=== PATIENT | male | born 2000 | race Caucasian/White ===

== ENCOUNTER 2022-06-14 17:51 | Inpatient (IN) | payer OTHER ==
[2022-06-14 20:37] VITALS: BMI 34.4
[2022-06-14] MEDS ORDERED: DICYCLOMINE HCL 10 MG CAPSULE PO PRN (21:19)
[2022-06-14] MEDS ORDERED: MAGNESIUM CITRATE 300 ML BOTTLE PO PRN (21:19)
[2022-06-14] MEDS ORDERED: LOPERAMIDE HCL 2 MG CAPSULE PO PRN (21:19)
[2022-06-14] MEDS ORDERED: BENZOCAINE/MENTHOL (CHLORASEPTIC ) LOZENGE MM PRN (21:19)
[2022-06-14] MEDS ORDERED: IBUPROFEN 400 MG TABLET (FP) PO PRN (21:19)
[2022-06-14] MEDS ORDERED: MAGNESIUM HYDROX 2400MG/30ML ORAL SUSPENSION 30 ML CUP PO PRN (21:19)
[2022-06-14] MEDS ORDERED: MELATONIN 5 MG TABLETS PO PRN (21:19)
[2022-06-14] MEDS ORDERED: BISMUTH SUBSALICYLATE 524 MG/30 ML PO PRN (21:19)
[2022-06-14] MEDS ORDERED: P-EPHED 60MG/TRIPROLIDI 2.5MG TABLET PO PRN (21:19)
[2022-06-14] MEDS ORDERED: NALOXONE HCL (KLOXXADO) 8 MG SPRAY NS PRN (21:19)
[2022-06-14] MEDS ORDERED: ONDANSETRON *ODT* 4 MG TABLET SL PRN (21:19)
[2022-06-14] MEDS ORDERED: ACETAMINOPHEN 325 MG TABLET (FP) PO PRN (21:19)
[2022-06-14] MEDS ORDERED: IBUPROFEN 600 MG TABLET (FP) PO PRN (21:19)
[2022-06-14] MEDS ORDERED: guaiFENesin 200 MG/10 ML 10 ML UNIT-DOSE CUPS PO PRN (21:19)
[2022-06-14] MEDS ORDERED: diazePAM 5 MG TABLET ONE (21:39)
[2022-06-14] MEDS: diazePAM 5 MG TABLET PO PRN (21:40)
[2022-06-15] MEDS ORDERED: IBUPROFEN 600 MG TABLET (FP) PO ONE (01:39)
[2022-06-15] MEDS: MAG HYDROX/AL HYDROX/SIMETH 30 ML UNIT-DOSE CUP PO PRN ×2 (02:59→12:46)
[2022-06-15] MEDS: diazePAM 5 MG TABLET PO PRN ×2 (03:44→13:18)
[2022-06-15] MEDS: hydrOXYzine PAMOATE 25 MG CAPSULE (FP) PO PRN ×2 (03:44→13:17)
[2022-06-15] MEDS: THIAMINE HCL 100 MG TABLET (FP) PO SCH ×2 (03:56→22:17)
[2022-06-15] MEDS: SULFAMETHOXAZOLE/TRIMETHOPRIM 800MG/160MG D.S. TABLET PO SCH ×3 (03:56→22:17)
[2022-06-15] MEDS: PRENATAL VITAMINS W/ FOLIC ACID TABLET (FP) PO SCH (10:47)
[2022-06-15] MEDS ORDERED: DIVALPROEX SODIUM 500 MG TABLET E.C. PO SCH (12:15)
[2022-06-15] MEDS ORDERED: HALOPERIDOL 5 MG TABLET PO ONE (12:17)
[2022-06-15 12:26] LABS: HEMATOCRIT 46.6 % (35.4-49); HEMOGLOBIN 14.5 GM/dL (11.7-16.9); MCH 25.6 pg (25.7-33.7); MEAN CELL VOLUME 82.6 fl (80-96); MEAN PLT VOLUME 9.2 fl (7.5-11.1); PLATELET COUNT 261 10^3/uL (134-434); RBC 5.64 M/mm3 (4.00-5.60); RDW 13.9 % (11.9-15.9); WHITE BLOOD COUNT 8.2 K/mm3 (4.0-10.0)
[2022-06-15] MEDS ORDERED: BENZTROPINE MESYLATE 0.5 MG TABLET (FP) PO SCH (12:30)
[2022-06-15] MEDS: METHOCARBAMOL 500 MG TABLET PO PRN (12:30)
[2022-06-15 12:43] LABS: BLOOD UREA NITROGEN 8.7 mg/dL (7-18)
[2022-06-15 12:45] LABS: CALCIUM 9.5 mg/dL (8.5-10.1)
[2022-06-15 12:46] LABS: CREATININE 0.8 mg/dL (0.55-1.3)
[2022-06-15 12:48] LABS: BILIRUBIN,TOTAL 0.9 mg/dL (0.2-1); TOT PROT 7.3 g/dl (6.4-8.2)
[2022-06-15] MEDS: BENZTROPINE MESYLATE 1 MG TABLET PO SCH ×2 (13:18→22:17)
[2022-06-15] MEDS: DIVALPROEX SODIUM 250 MG TABLET E.C. PO SCH ×2 (13:19→22:17)
[2022-06-15] MEDS: NICOTINE 10 MG CARTRIDGE (INHALER) IH PRN ×2 (15:10→22:49)
[2022-06-15 15:18] LABS: HIV INTERPRETATION NEGATIVE (NEGATIVE)
[2022-06-15 21:34] VITALS: RESP 18
[2022-06-15] MEDS: HALOPERIDOL 5 MG TABLET PO SCH (22:19)
[2022-06-15] MEDS: ACETAMINOPHEN 325 MG TABLET (FP) PO PRN (22:19)
[2022-06-16] MEDS: METHOCARBAMOL 500 MG TABLET PO PRN ×2 (00:32→06:37)
[2022-06-16] MEDS: hydrOXYzine PAMOATE 25 MG CAPSULE (FP) PO PRN ×2 (00:32→06:33)
[2022-06-16] MEDS: diazePAM 5 MG TABLET PO PRN (00:32)
[2022-06-16] MEDS: MAG HYDROX/AL HYDROX/SIMETH 30 ML UNIT-DOSE CUP PO PRN (06:13)
[2022-06-16] MEDS: ACETAMINOPHEN 325 MG TABLET (FP) PO PRN (06:34)
[2022-06-16 09:04] VITALS: BP 126/76; PULSE 64; TEMP 97.3
[2022-06-16] MEDS: DIVALPROEX SODIUM 250 MG TABLET E.C. PO SCH (10:18)
[2022-06-16] MEDS: SULFAMETHOXAZOLE/TRIMETHOPRIM 800MG/160MG D.S. TABLET PO SCH (10:18)
[2022-06-16] MEDS: BENZTROPINE MESYLATE 1 MG TABLET PO SCH (10:18)
[2022-06-16] MEDS: PRENATAL VITAMINS W/ FOLIC ACID TABLET (FP) PO SCH (10:21)
[2022-06-16] MEDS: HALOPERIDOL 5 MG TABLET PO SCH (11:06)
== END 2022-06-16 11:20 | disposition home or self-care (01) | DRG 776 ==
LOC: YASAS 17:51 → Y3N 06-15 01:57
PROVIDERS: ADMIT Allergy & Immunology; ATTEND Allergy & Immunology
PROC: HZ2ZZZZ Detoxification Services for Substance Abuse Treatment (ICD-10-PCS; principal; 2022-06-15)
DX: F13.230 Sedative, hypnotic or anxiolytic dependence with withdrawal, uncomplicated (principal); F17.210 Nicotine dependence, cigarettes, uncomplicated; F20.9 Schizophrenia, unspecified; G47.00 Insomnia, unspecified; M79.641 Pain in right hand; M79.89 Other specified soft tissue disorders; Z91.14 Patient's other noncompliance with medication regimen; Z59.02 Unsheltered homelessness
CPT/HCPCS: 36415; 73130-TC-RT-FY; 80053; 85027; 86780; 87389; 90715; C9803-CS; U0003; U0005